=== PATIENT | male | born 1985 | race Caucasian/White ===

== ENCOUNTER 2017-05-28 20:04 | Emergency (ER) | payer SELFPAY ==
[2017-05-28] MEDS ORDERED: IBUPROFEN 600 MG TABLET (FP) PO ONE (20:23)
--- NOTE | 2017-05-28 20:23 | PDOC ---
Rapid Medical Evaluation Time Seen by Provider: 05/28/17 20:18 Medical Evaluation: 05/28/17 20:18 I have performed a brief in-person evaluation of this patient. The patient presents with a chief complaint of: cough x 5 days, body/headache, fever, denies vomiting/diarrhea Pertinent physical exam findings: congestion, cough , temp 100.1F. I have ordered the following: flu swab The patient will proceed to the ED for further evaluation. Discharge Disposition - Diagnosis Cough - Referrals - Patient Instructions - Post Discharge Activity
[2017-05-28 20:26] VITALS: BP 153/73; PULSE 75; TEMP 100.1; BMI 25.8
--- NOTE | 2017-05-28 22:34 | PDOC ---
History of Present Illness - General Chief Complaint: Cold Symptoms Stated Complaint: COLD SYMPTOMS Time Seen by Provider: 05/28/17 20:18 History Source: Patient, Parent(s) Exam Limitations: No Limitations - History of Present Illness Initial Comments: 05/28/17 22:30 Complaints of cough, fever, chills, thick yellow-green phlegm production. Symptoms lasting for approximately 2-3 days. Suffers from chronic otitis media, but denies recent drainage from his left ear. Has used jhoc-ojo-troavns medications including NyQuil, DayQuil and Tylenol Motrin for fever and pain relief. Timing/Duration: reports: getting worse Severity: reports: mild, moderate Past History - Past Medical History Allergies/Adverse Reactions: Allergies Allergy/AdvReac Type Severity Reaction Status Date / Time No Known Allergies Allergy Verified 05/28/17 20:22 Home Medications: Ambulatory Orders Azithromycin [Zithromax -] 250 mg PO UTDICT #6 tab 05/28/17 COPD: No - Suicide/Smoking/Psychosocial Hx Smoking History: Never smoked Have you smoked in the past 12 months: No Information on smoking cessation initiated: No Hx Alcohol Use: No Drug/Substance Use Hx: No Substance Use Type: None Review of Systems - Review of Systems Able to Perform ROS?: Yes Is the patient limited Albanian proficient: Yes Constitutional: Yes: Symptoms Reported, See HPI, Fever, Loss of Appetite, Malaise HEENTM: Yes: Symptoms Reported, See HPI, Nose Congestion, Throat Pain Respiratory: Yes: Symptoms reported, See HPI, Cough (with thick green-yellow phlegm production) : No: Symptoms Reported Musculoskeletal: Yes: Symptoms Reported, See HPI Integumentary: Yes: Symptoms Reported, See HPI All Other Systems: Reviewed and Negative *Physical Exam - Vital Signs Last Vital Signs Temp Pulse Resp BP Pulse Ox 100.1 F H 75 20 153/73 98 05/28/17 20:23 05/28/17 20:23 05/28/17 20:23 05/28/17 20:23 05/28/17 20:23 - Physical Exam General Appearance: Yes: Nourished, Appropriately Dressed, Apparent Distress HEENT: positive: DIPTI. negative: TMs Normal (left canal unable to visualize secondary cerumen) Neck: positive: Supple. negative: Tender, Lymphadenopathy (R), Lymphadenopathy (L) Respiratory/Chest: positive: Lungs Clear, Normal Breath Sounds (coarse insp/ exp BS) Cardiovascular: positive: Regular Rate Gastrointestinal/Abdominal: positive: Soft. 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 Symptoms of bronchitis therefore will treat with a Z-Arturo *DC/Admit/Observation/Transfer Diagnosis at time of Disposition: Cough, Bronchitis - Discharge Dispostion Disposition: HOME Condition at time of disposition: Stable Admit: No - Prescriptions Prescriptions: Azithromycin [Zithromax -] 250 mg PO UTDICT #6 tab - Referrals - Patient Instructions Printed Discharge Instructions: DI for Acute Bronchitis Additional Instructions: Rest, drink lots of fluids: Teas, water, soups, Pedialyte Saltwater gargles Steamy showers/seem to face break up mucus Avoid contact with others until fevers and cough resolved Lots of handwashing and good hygiene Continue [id number] medications for symptomatic relief Tylenol or Motrin for fever and pain Azithromycin as directed Followup with private physician in one to 2 days as needed Return to emergency department for worsened symptoms, fevers, dehydration - Post Discharge Activity Forms/Work/School Notes: Back to Work
== END 2017-05-28 22:37 | disposition home or self-care (01) ==
LOC: JERFT 20:04
DX: J40 Bronchitis, not specified as acute or chronic (principal); H66.90 Otitis media, unspecified, unspecified ear
CPT/HCPCS: 87804; 99281-25

== ENCOUNTER 2017-06-26 10:57 | Emergency (ER) | payer OTHER ==
[2017-06-26 11:15] VITALS: BP 133/75; PULSE 52; TEMP 98.3; BMI 25.0
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
[2017-06-26] MEDS ORDERED: IBUPROFEN 400 MG TABLET (FP) PO ONE ×2 (11:41→11:46)
== END 2017-06-26 12:44 | disposition home or self-care (01) ==
LOC: JERFT 10:57
DX: M25.562 Pain in left knee (principal); M25.572 Pain in left ankle and joints of left foot; V03.10XA Pedestrian on foot injured in collision with car, pick-up truck or van in traffic accident, initial encounter; Y93.01 Activity, walking, marching and hiking; Y92.410 Unspecified street and highway as the place of occurrence of the external cause
CPT/HCPCS: 73562-TC-LT-FY; 73590-TC-LT-FY; 73610-TC-LT-FY; 73630-TC-LT; 99281-25

== ENCOUNTER 2018-05-02 22:45 | Emergency (ER) | payer SELFPAY ==
[2018-05-02 22:54] VITALS: BP 122/63; PULSE 47; TEMP 98.1
--- NOTE | 2018-05-02 23:49 | PDOC ---
History of Present Illness - General Chief Complaint: Ear Problem Stated Complaint: EAR PROBLEM Time Seen by Provider: 05/02/18 23:27 History Source: Patient Exam Limitations: No Limitations Past History - Travel Traveled outside of the country in the last 30 days: No Close contact w/someone who was outside of country & ill: No - Past Medical History Allergies/Adverse Reactions: Allergies Allergy/AdvReac Type Severity Reaction Status Date / Time No Known Allergies Allergy Verified 05/02/18 22:55 Home Medications: Ambulatory Orders Azithromycin [Zithromax -] 250 mg PO UTDICT #6 tab 05/28/17 Ibuprofen 800 mg PO TID #30 tablet 06/26/17 Amoxicillin - [Amoxicillin 500mg Capsule -] 500 mg PO BID #14 capsule 05/02/18 Ciprofloxacin HCl/Dexameth [Ciprodex Otic Suspension] 4 drop BID #1 bottle Fluticasone Prop 0.05% Nasal [Flonase -] 1 - 2 spray NS DAILY #1 spray.pump 04/08 COPD: No - Immunization History Immunization Up to Date: Yes - Suicide/Smoking/Psychosocial Hx Smoking History: Never smoked Have you smoked in the past 12 months: No Hx Alcohol Use: No Drug/Substance Use Hx: No Substance Use Type: None Review of Systems - Review of Systems Able to Perform ROS?: Yes Is the patient limited Serbian proficient: No *Physical Exam - Vital Signs Last Vital Signs Temp Pulse Resp BP Pulse Ox 98.1 F 47 L 18 122/63 100 05/02/18 22:52 05/02/18 22:52 05/02/18 22:52 05/02/18 22:52 05/02/18 22:52 Moderate Sedation - Procedure Monitoring Vital Signs: Procedure Monitoring Vital Signs Temperature 98.1 F 05/02/18 22:52 Pulse Rate 47 L 05/02/18 22:52 Respiratory Rate 18 05/02/18 22:52 Blood Pressure 122/63 05/02/18 22:52 O2 Sat by Pulse Oximetry (%) 100 05/02/18 22:52 *DC/Admit/Observation/Transfer Diagnosis at time of Disposition: Otitis externa Qualifiers: Otitis externa type: unspecified type Chronicity: acute Laterality: left Qualified Code(s): H60.502 - Unspecified acute noninfective otitis externa, left ear Otitis media Qualifiers: Otitis media type: suppurative Chronicity: acute Laterality: left Recurrence: non-recurrent Spontaneous tympanic membrane rupture: without spontaneous rupture Qualified Code(s): H66.002 - Acute suppurative otitis media without spontaneous rupture of ear drum, left ear - Discharge Dispostion Disposition: HOME Condition at time of disposition: Stable Decision to Admit order: No - Referrals Referrals: Ancelmo Ramirez MD [Staff Physician] - - Patient Instructions Printed Discharge Instructions: DI for Otitis Externa, Middle Ear Infection Additional Instructions: You have an ear infection of both the ear canal and the ear drum with an associated sore throat Please take the antibiotics as prescribed. Take the entire dose even if you feel better. You may take Tylenol or Motrin as needed for pain. Follow the manufacture's instructions. Do not put anything in the ear. Keep the ear clean and dry A referral to ENT has been provided. Please follow up in 24-72 hours. Return to the ED if you have worsening pain, fevers, chills, or have any changes in your symptoms. - Post Discharge Activity
--- NOTE | 2018-05-02 23:51 | PDOC ---
*Physical Exam - Vital Signs Last Vital Signs Temp Pulse Resp BP Pulse Ox 98.1 F 47 L 18 122/63 100 05/02/18 22:52 05/02/18 22:52 05/02/18 22:52 05/02/18 22:52 05/02/18 22:52 Medical Decision Making - Medical Decision Making 05/02/18 23:51 32 yo M presenting to the ER due to Left ear pain Pt has Otitis Externa Pt seen by Midlevel Provider under my direct supervision I agree with plan as outlined by Midlevel Provider 05/03/18 00:04 *DC/Admit/Observation/Transfer Diagnosis at time of Disposition: Otitis externa Qualifiers: Otitis externa type: unspecified type Chronicity: acute Laterality: left Qualified Code(s): H60.502 - Unspecified acute noninfective otitis externa, left ear Otitis media Qualifiers: Otitis media type: suppurative Chronicity: acute Laterality: left Recurrence: non-recurrent Spontaneous tympanic membrane rupture: without spontaneous rupture Qualified Code(s): H66.002 - Acute suppurative otitis media without spontaneous rupture of ear drum, left ear - Discharge Dispostion Disposition: HOME Condition at time of disposition: Stable - Prescriptions Prescriptions: Amoxicillin - [Amoxicillin 500mg Capsule -] 500 mg PO BID #14 capsule Ciprofloxacin HCl/Dexameth [Ciprodex Otic Suspension] 4 drop BID #1 bottle Fluticasone Prop 0.05% Nasal [Flonase -] 1 - 2 spray NS DAILY #1 spray.pump - Referrals Referrals: Ancelmo Ramirez MD [Staff Physician] - - Patient Instructions Printed Discharge Instructions: Middle Ear Infection, DI for Otitis Externa Additional Instructions: You have an ear infection of both the ear canal and the ear drum with an associated sore throat Please take the antibiotics as prescribed. Take the entire dose even if you feel better. You may take Tylenol or Motrin as needed for pain. Follow the manufacture's instructions. Do not put anything in the ear. Keep the ear clean and dry A referral to ENT has been provided. Please follow up in 24-72 hours. Return to the ED if you have worsening pain, fevers, chills, or have any changes in your symptoms. - Post Discharge Activity
== END 2018-05-03 00:10 | disposition home or self-care (01) ==
LOC: JER 22:45
DX: H60.502 Unspecified acute noninfective otitis externa, left ear (principal); H66.002 Acute suppurative otitis media without spontaneous rupture of ear drum, left ear
CPT/HCPCS: 99282-25

== ENCOUNTER 2019-01-07 20:40 | Emergency (ER) | payer OTHER ==
[2019-01-07 20:53] VITALS: BP 150/65; PULSE 57; TEMP 98.4; BMI 30.7
--- NOTE | 2019-01-07 20:53 | PDOC ---
Rapid Medical Evaluation Time Seen by Provider: 01/07/19 20:50 Medical Evaluation: Allergies Allergy/AdvReac Type Severity Reaction Status Date / Time No Known Allergies Allergy Verified 01/07/19 20:50 01/07/19 20:50 Pt presents with L ear pain and itching in his groin. He states there is a rash in his groin and that this has happened before. He also notes he had ear ache for two day. Exam: deferred groin and ear exam to provider Orders: Deferred Pt to proceed to the ER for further evaluation Discharge Disposition - Diagnosis Ear pain, left, Rash - Referrals - Patient Instructions - Post Discharge Activity
--- NOTE | 2019-01-07 22:14 | PDOC ---
History of Present Illness - General Chief Complaint: Ear Problem Stated Complaint: Ear Problem Time Seen by Provider: 01/07/19 20:50 - History of Present Illness Initial Comments: 01/07/19 22:14 CHIEF COMPLAINT: ear pain HISTORY OF PRESENT ILLNESS: 33 yo M with hx of recurrent otitis media (s/p 2 tympanostomy tubes) presents to fast track with left ear pain x 3 days. Patient denies fever but reports this feels like his previous ear infection. Patient also c/o discomfort with urination and "itching inside the penis" that he reports results after sexual activity with his . Denies rash/lesions/ ulcers to penis/groin. No recent travel or sick contacts. PAST MEDICAL HISTORY: Denies past medical history FAMILY HISTORY: Denies SOCIAL HISTORY: Denies tobacco, alcohol, illicit drug use. SURGICAL HISTORY: Denies ALLERGIES: No known drug allergies REVIEW OF SYSTEMS General/Constitutional: Denies fever or chills. Denies weakness, weight change. HEENT: L ear pain. Denies change in vision. Denies ear pain or discharge. Denies sore throat. Cardiovascular: Denies chest pain or shortness of breath. Respiratory: Denies cough, wheezing, or hemoptysis. Gastrointestinal: Denies nausea, vomiting, diarrhea or constipation. Denies rectal bleeding. Genitourinary: Discomfort with urination s/p sexual activity. Musculoskeletal: Denies joint or muscle swelling or pain. Denies neck or back pain. Skin: Denies rash or easy bruising. Neurologic: Denies headache, vertigo, loss of consciousness, or loss of sensation. Psychiatric: Denies depression or anxiety. Endocrine: Denies increased thirst. Denies abnormal weight change. Hematologic/Lymphatic: Denies anemia, easy bleeding, or history of blood clots. Allergic/Immunologic: Denies hives or skin allergy. Denies latex allergy. PHYSICAL EXAM General Appearance: Well-appearing, appropriately dressed. No apparent distress , no intoxication. HEENT: Dullness to L TM. EOMI, PERRLA, normal ENT inspection, normal voice, pharynx normal. No conjunctival pallor. No photophobia, scleral icterus. Neck: Supple. Trachea midline. No tenderness, rigidity, carotid bruit, stridor , lymphadenopathy, or thyromegaly. Respiratory/Chest: Lungs CTAB. No shortness of breath, chest tenderness, respiratory distress, accessory muscle use. No crackles, rales, rhonchi, stridor , wheezing, dullness Cardiovascular: RRR. S1, S2. No JVD, murmur, bradycardia, tachycardia. Vascular Pulses: Dorsalis-Pedis (R): 2+, Dorsalis-Pedis (L): 2+ Gastrointestinal/Abdominal: Normal bowel sounds. Abdomen soft, non-distended. No tenderness or rebound tenderness. No organomegaly, pulsatile mass, guarding , hernia, hepatomegaly, splenomegaly. Lymphatic: No adenopathy, tenderness. Musculoskeletal/Extremities: Normal inspection. FROM of all extremities, normal capillary refill. Pelvis Stable. No CVA tenderness. No tenderness to extremities, pedal edema, swelling, erythema or deformity. Integumentary: Appropriate color, dry, warm. 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 Fully oriented, alert. Appropriate mood/affect. Motor strength 5/5. No appreciable EOM palsy, facial droop or sensory deficit. Past History - Past Medical History Allergies/Adverse Reactions: Allergies Allergy/AdvReac Type Severity Reaction Status Date / Time No Known Allergies Allergy Verified 01/07/19 20:50 Home Medications: Ambulatory Orders Amoxicillin/Potassium Clav [Augmentin 875-125 Tablet] 1 each PO BID #20 tablet 01/07/19 COPD: No - Immunization History Immunization Up to Date: Yes - Suicide/Smoking/Psychosocial Hx Smoking History: Never smoked Have you smoked in the past 12 months: No Hx Alcohol Use: No Drug/Substance Use Hx: No Substance Use Type: None *Physical Exam - Vital Signs Last Vital Signs Temp Pulse Resp BP Pulse Ox 98.4 F 57 L 18 150/65 97 01/07/19 20:51 01/07/19 20:51 01/07/19 20:51 01/07/19 20:51 01/07/19 20:51 Medical Decision Making - Medical Decision Making 01/09/19 00:36 33 yo M with hx of recurrent otitis media (s/p 2 tympanostomy tubes) presents to fast track with left ear pain x 3 days. Patient requests to be treated empirically for STDs, advised patient to refrain from sexual activity for a week following treatment. Augmentin for otitis media. Advised patient to take medication as prescribed and follow up with PCP and ENT. Advised patient of signs and symptoms for return to ED. Patient verbalized understanding and agrees to plan. *DC/Admit/Observation/Transfer Diagnosis at time of Disposition: Ear pain, left, Possible exposure to STD Otitis media Qualifiers: Otitis media type: serous Chronicity: chronic Laterality: left Qualified Code(s ): H65.22 - Chronic serous otitis media, left ear - Discharge Dispostion Disposition: HOME Condition at time of disposition: Stable Decision to Admit order: No - Prescriptions Prescriptions: Amoxicillin/Potassium Clav [Augmentin 875-125 Tablet] 1 each PO BID #20 tablet - Referrals Referrals: Ancelmo Ramirez MD [Staff Physician] - - Patient Instructions Printed Discharge Instructions: Facts About Sexually Transmitted Infections, Middle Ear Infection - Post Discharge Activity
[2019-01-07] MEDS ORDERED: AZITHROMYCIN 500 MG TABLET PO ONE (22:15)
[2019-01-07] MEDS ORDERED: AZITHROMYCIN 500 MG TABLET ONE (22:43)
[2019-01-07 22:49] LABS: PH,URINE 6.5 (5.0-8.0); URINE APPEARANCE CLEAR; URINE BILIRUBIN NEGATIVE (NEGATIVE); URINE COLOR YELLOW; URINE GLUCOSE (UA) NEGATIVE (NEGATIVE); URINE KETONE NEGATIVE (NEGATIVE); URINE LEUK ESTERASE NEGATIVE (NEGATIVE); URINE NITRITE NEGATIVE (NEGATIVE); URINE PROTEIN NEGATIVE (NEGATIVE)
== END 2019-01-07 22:57 | disposition home or self-care (01) ==
LOC: JERFT 20:40
DX: H65.22 Chronic serous otitis media, left ear (principal); Z20.2 Contact with and (suspected) exposure to infections with a predominantly sexual mode of transmission
CPT/HCPCS: 36415; 81003; 87086; 87491; 87591; 99282-25

== ENCOUNTER 2019-06-14 20:03 | Emergency (ER) | payer OTHER ==
[2019-06-14 20:16] VITALS: BP 116/77; PULSE 81; TEMP 99.2; BMI 32.9
[2019-06-14] MEDS ORDERED: ACETAMINOPHEN 500 MG TABLET (FP) PO ONE (22:15)
[2019-06-14] MEDS ORDERED: ACETAMINOPHEN 500 MG TABLET (FP) ONE (22:25)
--- NOTE | 2019-06-14 22:28 | PDOC ---
History of Present Illness - General Chief Complaint: Cold Symptoms Stated Complaint: FEVER/COUGH Time Seen by Provider: 06/14/19 22:09 - History of Present Illness Initial Comments: 06/14/19 22:25 34-year-old male without comorbidities presents for evaluation of flulike symptoms x3 days Past History - Past Medical History Allergies/Adverse Reactions: Allergies Allergy/AdvReac Type Severity Reaction Status Date / Time No Known Allergies Allergy Verified 06/14/19 20:16 Home Medications: Ambulatory Orders Amoxicillin/Potassium Clav [Augmentin 875-125 Tablet] 1 each PO BID #20 tablet 01/07/19 Guaifenesin Dm [Mucinex Dm -] 1 tab PO BID #60 tab.er.[id number] 06/14/19 COPD: No - Immunization History Immunization Up to Date: Yes - Psycho Social/Smoking Cessation Hx Smoking History: Never smoked Have you smoked in the past 12 months: No Hx Alcohol Use: No Drug/Substance Use Hx: No Substance Use Type: None Review of Systems - Review of Systems Constitutional: Yes: Chills, Fever, Malaise, Night Sweats HEENTM: Yes: Nose Congestion Respiratory: Yes: Cough *Physical Exam - Vital Signs Last Vital Signs Temp Pulse Resp BP Pulse Ox 99.2 F 81 18 116/77 99 06/14/19 20:14 06/14/19 20:14 06/14/19 20:14 06/14/19 20:14 06/14/19 20:14 - Physical Exam 06/14/19 22:25 GENERAL: The patient is awake, alert, and fully oriented, in no acute distress. HEAD: Normal with no signs of trauma. EYES: sclera anicteric, conjunctiva clear. ENT: Ears normal tympanic membranes normal oropharynx clear uvula midline NECK: Normal range of motion LUNGS: Breath sounds equal, clear to auscultation bilaterally. No wheezes, and no crackles. HEART: S1 and S2 without murmur, rub or gallop. ABDOMEN: Soft, nontender, normoactive bowel sounds. No guarding, no rebound. No masses. EXTREMITIES: Normal range of motion, no edema. No clubbing or cyanosis. No cords, erythema, or tenderness. NEUROLOGICAL: Cranial nerves II through XII grossly intact. PSYCH: Normal mood, normal affect. SKIN: Warm, Dry, normal turgor, no rashes or lesions noted. ED Treatment Course - RADIOLOGY Radiology Studies Ordered: Category Date Time Status CHEST PA & LAT [RAD] Stat Radiology 06/14/19 22:15 Taken - Medications Given in the ED: ED Medications Discontinued Medications Generic Name Dose Route Start Last Admin Trade Name Melvi PRN Reason Stop Dose Admin Acetaminophen 1,000 mg 06/14/19 22:15 06/14/19 22:21 Tylenol - PO 06/14/19 22:16 1,000 mg ONCE ONE Administration Medical Decision Making - Medical Decision Making 06/14/19 22:26 Chest x-ray clear out of the window for Tamiflu follow-up with primary care physician supportive care for viral upper respiratory infection Discharge - Discharge Information Problems reviewed: Yes Clinical Impression/Diagnosis: Cough, Viral URI with cough Condition: Stable Disposition: HOME - Admission No - Follow up/Referral Referrals: Maira Cartwright MD [Staff Physician] - - Patient Discharge Instructions Additional Instructions: Supportive care. Maintain hydration with Pedialyte. Tylenol and Motrin as directed for fever and body aches. Return to the emergency room for worsening symptoms. And without fail follow-up with your primary care physician in 1 to 2 days for further evaluation and treatment options. Tylenol and Motrin as directed for fevers. Mucinex as directed for cough. Return to the emergency room for worsening symptoms and without fail follow-up with your primary care physician in 1 to 2 days for further evaluation and treatment options. - Post Discharge Activity
== END 2019-06-14 23:09 | disposition home or self-care (01) ==
LOC: JERFT 20:03
DX: J06.9 Acute upper respiratory infection, unspecified (principal); B97.89 Other viral agents as the cause of diseases classified elsewhere
CPT/HCPCS: 71046-TC-FY; 99283-25

== ENCOUNTER 2023-12-24 23:37 | Emergency (ER) | payer OTHER ==
[2023-12-24 23:49] VITALS: BP 119/71; PULSE 51; RESP 16; TEMP 97.7; BMI 35.5
== END 2023-12-25 00:21 | disposition home or self-care (01) ==
LOC: JER 23:37
DX: L29.9 Pruritus, unspecified (principal)
CPT/HCPCS: 99283-25